=== PATIENT | female | born 1975 | race Two or more races ===

== ENCOUNTER 2021-10-01 22:07 | Emergency (ER) | payer MEDICAID ==
[~2021-10-01] VITALS: Ht 149.9 cm; Wt 95.3 kg
--- NOTE | 2021-10-01 22:27 | NUR ---
TO ER BED 10. [id number] FROM BAR +ETOH "FELL OFF CHAIR HIT BACK OF HEAD" +LAC +KO -BLOODTHINNERS TDAP UTD. PT IS ALERT AND CRYING, DOES NOT REMEMBER WHAT HAPPENED. BREATHING IS EVEN AND NONLABORED. CONNECTED TO MONITOR. AWAITING MD MCGRATH
--- NOTE | 2021-10-01 22:52 | NUR ---
PT TAKEN FOR CT SCAN
--- NOTE | 2021-10-01 23:00 | NUR ---
PT BACK FROM CT, RECONNECTED TO MONITOR
--- NOTE | 2021-10-02 00:20 | NUR ---
Patient discharged to home in stable condition. Written and verbal after care instructions given. Patient verbalizes understanding of instruction.
[2021-10-02 00:25] VITALS: BP 151/92
== END 2021-10-02 00:26 | disposition home or self-care (01) ==
LOC: ER 22:18
DX: S01.01XA Laceration without foreign body of scalp, initial encounter (principal); S09.90XA Unspecified injury of head, initial encounter; F10.129 Alcohol abuse with intoxication, unspecified; E11.9 Type 2 diabetes mellitus without complications; W19.XXXA Unspecified fall, initial encounter; Y93.89 Activity, other specified; Y92.89 Other specified places as the place of occurrence of the external cause; Y99.8 Other external cause status; Y90.9 Presence of alcohol in blood, level not specified
CPT/HCPCS: 70450-TC; 72125-TC

== ENCOUNTER 2021-10-10 14:02 | Emergency (ER) | payer MEDICAID ==
[~2021-10-10] VITALS: Ht 149.9 cm; Wt 95.3 kg
[2021-10-10 14:21] VITALS: BP 131/83
--- NOTE | 2021-10-10 15:03 | NUR ---
Patient discharged to home in stable condition. Written and verbal after care instructions given. Patient verbalizes understanding of instruction.
== END 2021-10-10 15:08 | disposition home or self-care (01) ==
LOC: ER 14:09
DX: Z48.02 Encounter for removal of sutures (principal); E11.9 Type 2 diabetes mellitus without complications